=== PATIENT | female | born 1985 | race Hispanic/Latino ===

== ENCOUNTER 2016-06-30 16:21 | Emergency (ER) | payer OTHER ==
[~2016-06-30] VITALS: Ht 160 cm; Wt 50.9 kg
[2016-06-30 17:28] VITALS: BP 105/69
--- NOTE | 2016-06-30 17:57 | ED GENERAL ADULT ---
History of Present Illness General Chief Complaint: General Adult Stated Complaint: BODY PAIN, H/O MYOFASCIAL PAIN SYNDROME Source: patient, old records Exam Limitations: no limitations Vital Signs & Intake/Output Vital Signs & Intake/Output Vital Signs Date Time Temp Pulse Resp B/P B/P Pulse O2 O2 Flow FiO2 Mean Ox Delivery Rate 06/30 1728 98.1 60 16 105/69 96 Room Air Allergies Coded Allergies: Penicillins (HIVES 06/30/16) levetiracetam (From KEPPRA) (HIVES 06/30/16) phenytoin (From DILANTIN) (HIVES 06/30/16) tramadol (SEIZURES 06/30/16) Reconcile Medications Clonazepam 1 MG TABLET 1 TAB PO QPM SLEEP (Reported) Duloxetine HCl 60 MG CAPSULE.DR 1 CAP PO DAILY FIBROMYALGIA (Reported) Ergocalciferol (Vitamin D2) (Vitamin D2) 50,000 UNIT CAPSULE 1 CAP PO QSUN SUPPLEMENT (Reported) Hydrocodone/Acetaminophen ([place] 5-325 Tablet) 5 MG-325 MG TABLET 1 TAB PO TIDPRN PRN pain Hydrocodone/Acetaminophen ([place] 5-325 Tablet) 5 MG-325 MG TABLET 1 TAB PO Q4- 6 PRN PRN PAIN Ibuprofen 800 MG TABLET 1 TAB PO PRN PAIN (Reported) Lidocaine 5 % ADH..PATCH 1 PAT TOP DAILY PAIN (Reported) Pregabalin (Lyrica) 150 MG CAPSULE 1 CAP PO BID FIBROMYALGIA (Reported) Tizanidine HCl 4 MG TABLET 16 MG PO TID MUSCLE RELAXER (Reported) Valacyclovir HCl (Valacyclovir) 500 MG TABLET 1 TAB PO PRN ANTIVIRAL ( Reported) Triage Note: RECEIVED 31 YO FEMALE WITH HX OF MYOFASCIAL PAIN SYNDROME, C/O RIGHT HIP PAIN RADIATING DOWN R LEG, MID LOWER BACK PAIN X 3 TO 4 DAYS. PT TAKING OVER THE COUNTER TYLENOL FOR PAIN WITHOUT EFFECT. Triage Nurses Notes Reviewed? yes Onset: Abrupt Duration: day(s): (3), constant Timing: recent history Injury Environment: home Severity: moderate Severity Numbers: 7 No Modifying Factors: none Associated Symptoms: DENIES : No Patient currently breastfeeds: No HPI: 31-year-old female presents to ER for evaluation with history of fibromyalgia complaining of exacerbation of her chronic pain to her mid back for the past 3 days. Patient states pain radiates into her right thigh. No fall or trauma. She denies any fever chills abdominal pain no dysuria urgency frequency. No urinary or bowel incontinence. She denies any chest pain shortness of breath. (JENNIFER ROGERS) Past History Travel History Traveled to [place] past 21 day No Medical History Any Pertinent Medical History? see below for history Neurological: seizure EENT: NONE Cardiovascular: NONE Respiratory: NONE Gastrointestinal: NONE Hepatic: NONE Renal: NONE Musculoskeletal: MYOFASCIAL PAIN SYNDROME Psychiatric: NONE Endocrine: NONE Blood Disorders: NONE Cancer(s): NONE Surgical History Surgical History: non-contributory Psychosocial History What is your primary language Korean Tobacco Use: Current Daily Use Daily Tobacco Use Amount/Type: => 5 Cigarettes daily Family History Hx Contributory? No (JENNIFER ROGERS) Review of Systems Review of Systems Constitutional: Reports: see HPI. All Other Systems: Reviewed and Negative Comments Review of systems: See HPI, All other systems negative. Constitutional, no chills no fever, no malaise no weight loss HEENT: No visual changes no sore throat no congestion, no ear pain Cardiovascular: No chest pain , no palpitation , no orthopnea Skin: no rashes, no change in skin Respiratory: No dyspnea no cough no sputum no hemoptysis GI: No nausea no vomiting, no diarrhea, no bloating/constipation : No dysuria No hematuria, no frequency, no discharge Muscle skeletal: No joint pain, no joint swelling, back pain, no neck pain, Neurologic: No numbness no confusion, no headache Psych: No stress no depression,. Heme/endocrine: No bruising no bleeding Immunology: No lymphadenopathy (JENNIFER ROGERS) Physical Exam Physical Exam General Appearance: well developed/nourished, no apparent distress, alert, awake Comments: Well-developed well-nourished person in no acute distress HEENT: Normal EENT exam; PERRL, EOMI, HEAD is atraumatic. moist mucous membranes. Neck: Supple, , normal range of motion without pain or tenderness Back: No midline tenderness there is bilateral parathoracic muscle tenderness palpation no CVA tenderness. Full range of motion Cardiovascular: Regular rate and rhythms no murmurs rubs or gallops, normal JVP Respiratory: Chest nontender.There were no bony deformities, no asymmetry. No respiratory distress. Patient speaking in full complete sentences. Breath sounds clear to auscultation bilaterally: NO W/R/R Abdomen: Soft, nontender nondistended, no appreciable organomegaly. Normal bowel sounds. No rebound/guarding, No appreciable enlargement of the abdominal aorta, No ascites. Extremity: No edema, full range of motion of extremities, normal and equal pulses bilaterally, 5 out of 5 strength noted to bilateral upper and lower extremities negative straight leg raise bilaterally Neuro: Alert oriented x3, motor sensory normal, cranial nerves II through XII grossly intact. There were no obvious focal neurologic abnormalities. Skin: No appreciable rash on exposed skin, skin is warm and dry. Psych: Mood and affect is normal, memory and judgment is normal. Core Measures ACS in differential dx? No CVA/TIA Diagnosis: No Severe Sepsis Present: No Septic Shock Present: No (JENNIFER ROGERS) Progress Differential Diagnoses I considered the following diagnoses in my evaluation of the patient: Muscle strain UTI pyelonephritis Plan of Care: Patient clinically looks well. Patient has no evidence of radiculopathy. No urinary bowel dysfunction. No numbness in the genital area. Strength intact. Gross sensation intact. Patient resting comfortably and in no apparent distress. Pain is worse with range of motion. Pain is reproducible IN back with no bruising or ecchymosis noted. . Patient is to follow-up with primary care doctor. May need MRI of the lower back at some point time. No concerns for cauda equina at this point time. I considered this diagnosis but patient does not have any symptoms consistent with cauda equina. Patient has no secondary causes of back pain. No cardiac, pulmonary, or abdominal complaints. No abdominal pain on exam. Cardiac pulmonary exam within normal limits. 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 [place] for breakthrough pain this is a narcotic highly addictive no driving or drinking alcohol while taking. Departure Forms: Customer Survey General Discharge Information Prescriptions: Current Visit Scripts Hydrocodone/Acetaminophen ([place] 5-325 Tablet) 1 TAB PO TIDPRN PRN pain #10 TAB Hydrocodone/Acetaminophen ([place] 5-325 Tablet) 1 TAB PO Q4-6 PRN PRN PAIN #8 TAB (JENNIFER ROGERS) PA/TRAVEL DIRECTOR Co-Sign Statement Statement: ED Attending supervision documentation- [] I saw and evaluated the patient. I have also reviewed all the pertinent lab results and diagnostic results. I agree with the findings and the plan of care as documented in the PA's/TRAVEL DIRECTOR's documentation. [X] I have reviewed the ED Record and agree with the PA's/TRAVEL DIRECTOR's documentation. [] Additions or exceptions (if any) to the PAs/TRAVEL DIRECTOR's note and plan are summarized below: [] (ALEX YEAGER,RODNEY Petit) Critical Care Note Critical Care Note Critical Care Time: non-applicable (JENNIFER ROGERS)
[2016-06-30] MEDS ORDERED: NORCO 5-325 TA1 EACH PO ×2 (18:02→18:44)
[2016-06-30] MEDS ORDERED: DULOXETINE HCL60 MG PO (18:09)
[2016-06-30] MEDS ORDERED: LYRICA150 M1 PO (18:09)
[2016-06-30] MEDS ORDERED: CLONAZEPAM1 M2 PO (18:09)
[2016-06-30] MEDS ORDERED: VITAMIN D250000 UNIT PO (18:10)
[2016-06-30] MEDS ORDERED: TIZANIDINE HCL4 M1 PO (18:10)
[2016-06-30] MEDS ORDERED: LIDOCAINE1 EACH TOP (18:10)
[2016-06-30] MEDS ORDERED: VALACYCLOVIR500 M1 PO (18:11)
[2016-06-30] MEDS ORDERED: IBUPROFEN800 M1 PO (18:11)
== END 2016-06-30 18:21 ==
LOC: ERH 16:21
DX: S39.012A Strain of muscle, fascia and tendon of lower back, initial encounter (principal)